=== PATIENT | male | born 1985 | race American Indian/Alaskan Native ===

== ENCOUNTER 2017-04-03 20:05 | Emergency (ER) | payer SELFPAY ==
[2017-04-03 22:07] LABS: Alanine Aminotransferase 23 units/L (7-56); Albumin 4.1 g/dL (3.9-5); Albumin/Globulin Ratio 1.3 %; Alkaline Phosphatase 80 units/L (35-129); Anion Gap 14 mmol/L; BUN/Creatinine Ratio 16; Blood Urea Nitrogen 8 mg/dL (9-20); Calcium 8.4 mg/dL (8.4-10.2); Carbon Dioxide 29 mmol/L (22-30); Chloride 103.6 mmol/L (98-107); Glucose 42 mg/dL (75-100); Lipase 29 units/L (13-60); Potassium 3.7 mmol/L (3.6-5.0); Sodium 143 mmol/L (137-145); Total Protein 7.3 g/dL (6.3-8.2)
[2017-04-03 22:09] LABS: Basophils % (Auto) 0.3 % (0.0-1.8); Eosinophils % (Auto) 0.5 % (0.0-4.3); Hemoglobin 13.5 gm/dl (11.8-15.2); Mean Corpuscular HGB Conc 35 % (32-34); Mean Corpuscular Hemoglobin 31 pg (28-32); Mean Corpuscular Volume 91 fl (84-94); Platelet Count 248 K/mm3 (140-440); Red Cell Distribution Width 15.9 % (13.2-15.2); White Blood Count 7.5 K/mm3 (4.5-11.0)
[2017-04-03 23:20] LABS: Bilirubin,Urine NEG (Negative); Blood,Urine NEG (Negative); Ketones,Urine NEG (Negative); Leukocyte Esterase,Urine NEG (Negative); Mucus,Urine FEW /HPF; Nitrite,Urine NEG (Negative); Protein,Urine <15 mg/dL mg/dL (Negative)
--- NOTE | 2017-04-04 01:18 | Emergency Department Report ---
ED Abdominal Pain HPI - General Chief Complaint: Abdominal Pain Stated Complaint: ABD PAIN Time Seen by Provider: 04/04/17 01:17 Source: patient, EMS Mode of arrival: Ambulatory Limitations: No Limitations - History of Present Illness Initial Comments: Patient is a 32-year-old male presents to the ER with epigastric abdominal pain. Patient was seen yesterday in the ER here for the exact same pain however did not merchandise pickup/receiving associate his medications from the pharmacy. Patient was brought in by EMS this time due to an extreme flareup of his acid reflux and gastritis. Patient denies chest pain.. Patient denies shortness of breath. patient denies fever and chills. MD Complaint: abdominal pain -: Sudden, days(s) Location: epigastric Radiation: epigastric Migration to: epigastric Severity: severe Severity scale (0 -10): 10 Quality: sharp Consistency: intermittent Improves With: rest Worsens With: eating Associated Symptoms: denies other symptoms - Related Data Previous Rx's Medication Instructions Recorded Last Taken Type Lansoprazole [Prevacid] 15 mg PO BID #60 cap 04/02/17 Unknown Rx traMADol [Ultram] 50 mg PO Q6HR PRN #14 tablet 04/02/17 Unknown Rx Allergies Allergy/AdvReac Type Severity Reaction Status Date / Time No Known Allergies Allergy Unverified 04/02/17 01:59 ED Review of Systems ROS: Stated complaint: ABD PAIN Other details as noted in HPI Comment: All other systems reviewed and negative Constitutional: no symptoms reported, see HPI Eyes: as per HPI ENT: as per HPI Respiratory: no symptoms reported, see HPI Cardiovascular: as per HPI Endocrine: no symptoms reported, see HPI Gastrointestinal: as per HPI, abdominal pain Genitourinary: as per HPI Musculoskeletal: as per HPI Skin: as per HPI Neurological: as per HPI Psychiatric: as per HPI Hematological/Lymphatic: as per HPI ED Past Medical Hx - Past Medical History Previous Medical History?: Yes Additional medical history: abd pain - Surgical History Past Surgical History?: No - Social History Smoking Status: Never Smoker Substance Use Type: None - Medications Home Medications: Home Medications Medication Instructions Recorded Confirmed Last Taken Type Lansoprazole [Prevacid] 15 mg PO BID #60 cap 04/02/17 Unknown Rx traMADol [Ultram] 50 mg PO Q6HR PRN #14 tablet 04/02/17 Unknown Rx ED Physical Exam - General Limitations: No Limitations General appearance: alert, in no apparent distress - Head Head exam: Present: atraumatic, normocephalic - Eye Eye exam: Present: normal appearance - ENT ENT exam: Present: mucous membranes moist - Neck Neck exam: Present: normal inspection - Respiratory Respiratory exam: Present: normal lung sounds bilaterally. Absent: respiratory distress - Cardiovascular Cardiovascular Exam: Present: regular rate, normal rhythm. Absent: systolic murmur, diastolic murmur, rubs, gallop - GI/Abdominal GI/Abdominal exam: Present: soft, tenderness (epigastric tenderness), normal bowel sounds - Rectal Rectal exam: Present: deferred - Extremities Exam Extremities exam: Present: normal inspection - Back Exam Back exam: Present: normal inspection - Neurological Exam Neurological exam: Present: alert, oriented X3 - Psychiatric Psychiatric exam: Present: normal affect, normal mood - Skin Skin exam: Present: warm, dry, intact, normal color. Absent: rash ED Course Vital Signs 04/03/17 04/04/17 21:10 00:56 Temperature 97.9 F Pulse Rate 87 Respiratory 16 18 Rate Blood Pressure 132/93 [Right] O2 Sat by Pulse 100 99 Oximetry ED Medical Decision Making - Lab Data Result diagrams: 04/03/17 21:32 04/03/17 21:32 - Medical Decision Making Patient stable for discharge. Patient instructed to merchandise pickup/receiving associate her meds from pharmacy. Patient given gerd diet - Differential Diagnosis gerd, abd pain, gastritis. Critical care attestation.: If time is entered above; I have spent that time in minutes in the direct care of this critically ill patient, excluding procedure time. ED Disposition Clinical Impression: Gastritis, GERD (gastroesophageal reflux disease), GERD with esophagitis, Gastritis and gastroduodenitis, Abdominal pain Disposition: -01 TO HOME OR SELFCARE Is pt being admited?: No Does the pt Need Aspirin: No Condition: Stable Instructions: Gastritis (ED), Diet for Ulcers and Gastritis (ED) Additional Instructions: Patient follow with primary care in 3- 5 days and to see a kennel operator in 3-5 days. Patient to avoid NSAIDs and start GERD diet. Patient take Tylenol when necessary for pain and increase water. Patient to return to ER if condition worsens. Referrals: PRIMARY CARE, [Primary Care Provider] - 3-5 Days Time of Disposition: 02:00
[2017-04-04] MEDS ORDERED: ALUM-MAG HYDROX-SIMETH 200-200-20MG/5ML PO ONE (01:39)
[2017-04-04] MEDS ORDERED: LIDOCAINE VISCOUS 2% PO ONE (01:41)
[2017-04-04 02:02] VITALS: BP 128/84
== END 2017-04-04 02:01 | disposition home or self-care (01) ==
LOC: ED 20:05
DX: K29.70 Gastritis, unspecified, without bleeding (principal); K21.0 Gastro-esophageal reflux disease with esophagitis; K29.90 Gastroduodenitis, unspecified, without bleeding
CPT/HCPCS: 36415; 80053; 81001; 83690; 85025; 99284

== ENCOUNTER 2017-05-30 15:53 | Emergency (ER) | payer OTHER ==
[2017-05-30 17:55] LABS: Basophils # (Auto) 0.1 K/mm3 (0.0-0.1); Basophils % (Auto) 1.2 % (0.0-1.8); Eosinophils # (Auto) 0.1 K/mm3 (0.0-0.4); Eosinophils % (Auto) 1.4 % (0.0-4.3); Hematocrit 40.8 % (35.5-45.6); Hemoglobin 14.1 gm/dl (11.8-15.2); Lymphocytes # (Auto) 1.1 K/mm3 (1.2-5.4); Lymphocytes % (Auto) 25.7 % (13.4-35.0); Mean Corpuscular HGB Conc 35 % (32-34); Mean Corpuscular Hemoglobin 31 pg (28-32); Mean Corpuscular Volume 88 fl (84-94); Monocytes # (Auto) 0.4 K/mm3 (0.0-0.8); Monocytes % (Auto) 9.1 % (0.0-7.3); Platelet Count 260 K/mm3 (140-440); Red Blood Count 4.63 M/mm3 (3.65-5.03); Red Cell Distribution Width 15.4 % (13.2-15.2)
[2017-05-30 18:24] LABS: Alanine Aminotransferase 10 units/L (7-56); Albumin 4.2 g/dL (3.9-5); BUN/Creatinine Ratio 12; Blood Urea Nitrogen 6 mg/dL (9-20); Calcium 8.5 mg/dL (8.4-10.2); Hemolysis Index 4
[2017-05-30 20:25] LABS: Color,Urine Amber (Yellow)
[2017-05-30 20:26] LABS: Bilirubin,Urine NEG (Negative); Blood,Urine NEG (Negative); Mucus,Urine FEW /HPF; Nitrite,Urine NEG (Negative); Protein,Urine <15 mg/dL mg/dL (Negative); Urobilinogen,Urine < 2.0 mg/dL (<2.0); WBC,Urine < 1.0 /HPF (0.0-6.0)
--- NOTE | 2017-05-31 01:22 | Emergency Department Report ---
ED Abdominal Pain HPI - General Chief Complaint: Abdominal Pain Stated Complaint: ABD PAIN Time Seen by Provider: 05/31/17 01:15 Source: patient Mode of arrival: Ambulatory Limitations: No Limitations - History of Present Illness Initial Comments: 32 YO MALE WITH C/O RLQ AND RIGHT UPPER QUADRANT AND RIGHT MID QUADRANT PAIN. HE WAS SEEN 7 WEEKS AGO AT THIS FACILITY ED FOR THIS PAIN AND GIVEN PREVACID, TRAMADOL FOR HIS PAIN. ONE MONTH AGO, HE WAS SEEN AT [place] ,RECEIVED CT ABD/ PELVIS WITH CONTRAST AND THERE WAS ?BOWEL BLOCKAGE PER PT. FOR THE PAST TWO WEEKS, HE HAD 4/10 ABDOMINAL PAIN. FOUR AND A HALF YEARS AGO, HE HAD GASTRIC BYPASS. PT SITTING UP ON THE STRETCHER TEXTING ON HIS PHONE. NO DISTRESS NOTED MD Complaint: abdominal pain -: Gradual (MORE THAN 7 WEEKS) Radiation: RUQ, LLQ Migration to: epigastric Severity scale (0 -10): 3 Quality: aching Consistency: constant Improves With: medication - Related Data Previous Rx's Medication Instructions Recorded Last Taken Type Lansoprazole [Prevacid] 15 mg PO BID #60 cap 04/02/17 Unknown Rx traMADol [Ultram] 50 mg PO Q6HR PRN #14 tablet 04/02/17 Unknown Rx oxyCODONE /ACETAMINOPHEN [Percocet 2 tab PO Q6HR PRN #14 tablet 05/31/17 Unknown Rx 5/325] Allergies Allergy/AdvReac Type Severity Reaction Status Date / Time No Known Allergies Allergy Unverified 04/02/17 01:59 ED Review of Systems ROS: Stated complaint: ABD PAIN Other details as noted in HPI Constitutional: denies: chills, fever Eyes: denies: eye pain, eye discharge, vision change ENT: denies: ear pain, throat pain Respiratory: denies: cough, shortness of breath, wheezing Cardiovascular: chest pain. denies: palpitations Endocrine: no symptoms reported Gastrointestinal: denies: nausea, vomiting, diarrhea Genitourinary: denies: urgency, dysuria Musculoskeletal: denies: back pain, joint swelling, arthralgia Skin: denies: rash, lesions Neurological: denies: headache, weakness, paresthesias Psychiatric: denies: anxiety, depression Hematological/Lymphatic: denies: easy bleeding, easy bruising ED Past Medical Hx - Past Medical History Previous Medical History?: Yes Additional medical history: abd pain,MORBID OBESITY - Surgical History Past Surgical History?: Yes Additional Surgical History: GASTRIC BYPASS 4 .5 YRS AGO - Social History Smoking Status: Never Smoker Substance Use Type: None, Alcohol - Medications Home Medications: Home Medications Medication Instructions Recorded Confirmed Last Taken Type Lansoprazole [Prevacid] 15 mg PO BID #60 cap 04/02/17 Unknown Rx traMADol [Ultram] 50 mg PO Q6HR PRN #14 tablet 04/02/17 Unknown Rx oxyCODONE /ACETAMINOPHEN [Percocet 2 tab PO Q6HR PRN #14 tablet 05/31/17 Unknown Rx 5/325] ED Physical Exam - General Limitations: No Limitations General appearance: alert, in no apparent distress - Head Head exam: Present: atraumatic, normocephalic - Eye Eye exam: Present: normal appearance, EOMI - ENT ENT exam: Present: mucous membranes moist - Neck Neck exam: Present: normal inspection, full ROM - Respiratory Respiratory exam: Present: normal lung sounds bilaterally. Absent: respiratory distress - Cardiovascular Cardiovascular Exam: Present: regular rate, normal rhythm. Absent: systolic murmur, diastolic murmur, rubs, gallop - GI/Abdominal GI/Abdominal exam: Present: soft, tenderness (RLQ ANDV RIGHT MID AND RUQ), normal bowel sounds - Rectal Rectal exam: Present: deferred - Extremities Exam Extremities exam: Present: normal inspection, full ROM - Back Exam Back exam: Present: normal inspection, full ROM - Neurological Exam Neurological exam: Present: alert, oriented X3, CN II-XII intact - Psychiatric Psychiatric exam: Present: normal affect, normal mood - Skin Skin exam: Present: warm, dry, intact, normal color. Absent: rash ED Course Vital Signs 05/30/17 05/30/17 17:30 23:56 Temperature 98.1 F 98.2 F Pulse Rate 65 80 Respiratory 16 16 Rate Blood Pressure 116/65 Blood Pressure 130/85 [Left] O2 Sat by Pulse 100 100 Oximetry ED Medical Decision Making - Lab Data Result diagrams: 05/30/17 17:39 05/30/17 17:39 - Radiology Data Radiology results: report reviewed (CXR; NO ACTIVE DISEASE ABD XRAY: UNREMARKALE BOWEL GAS PATTERN), image reviewed Critical care attestation.: If time is entered above; I have spent that time in minutes in the direct care of this critically ill patient, excluding procedure time. ED Disposition Clinical Impression: Chest pain Qualifiers: Chest pain type: unspecified Qualified Code(s): R07.9 - Chest pain, unspecified Disposition: TO HOME OR SELFCARE Is pt being admited?: No Does the pt Need Aspirin: No Condition: Stable Instructions: Acute Abdominal Pain (ED), Noncardiac Chest Pain (ED) Additional Instructions: FOLLOW UP WITH YOUR DOCTOR IN 2 DAYS. RETURN TO THE ER FOR WORSENING PAIN, OR CHANGING PAIN. OR FOR ANY CONCERNS. Prescriptions: oxyCODONE /ACETAMINOPHEN [Percocet 5/325] 2 tab PO Q6HR PRN #14 tablet PRN Reason: Pain Referrals: MARTIN BALLESTEROS MD [Primary Care Provider] - 3-5 Days Time of Disposition: 01:49
--- NOTE | 2017-05-31 01:24 | XRay Report ---
FINAL REPORT EXAM: XR ABDOMEN 2V HISTORY: abdominal pain TECHNIQUE: Two views of the abdomen were obtained. FINDINGS: The overall bowel gas pattern is within normal limits. There are surgical clips in the left upper quadrant of the abdomen. The lung bases are clear. There is no evidence of mass effect or suspicious calcifications. The skeletal structures are well-maintained. IMPRESSION: Unremarkable bowel gas pattern. No acute process identified.
--- NOTE | 2017-05-31 01:25 | XRay Report ---
FINAL REPORT EXAM: XR CHEST ROUTINE 2V HISTORY: LOWER RT CHEST PAIN TECHNIQUE: PA and lateral views of the chest were submitted. There are no previous studies available for comparison. FINDINGS: Heart size and mediastinum appear normal. The lungs are clear. Pleural fluid is not seen. The bones and soft tissues do not show any acute changes. IMPRESSION: No active chest disease.
[2017-05-31 01:44] LABS: Creatine Kinase MB 2.1 ng/mL (0.0-4.0)
[2017-05-31] MEDS ORDERED: NACL 0.9% 1000 ML 1,000 ML IV ONE (01:49)
[2017-05-31] MEDS ORDERED: TORADOL IV ONE (01:49)
--- NOTE | 2017-05-31 05:37 | Cat Scan Report ---
FINAL REPORT EXAM: CT ABDOMEN PELVIS W CON HISTORY: ABD PAIN, G-BYPASS YRS AGO TECHNIQUE: Routine axial imaging was obtained of the abdomen and pelvis following the intravenous injection of 100 cc of Omnipaque 350. Delayed axial imaging was obtained for evaluation of the renal collecting structures and ureters. Coronal and parasagittal reconstructions were also reviewed. FINDINGS: The lung bases are clear. Pleural fluid is not identified. The liver, pancreas, spleen, and adrenal glands appear normal. The gallbladder is normal size reveals least 1 dependent stone. There are no secondary signs of acute cholecystitis. The kidneys enhance normally. The vascular structures reveal either a flow artifact versus partial thrombosis of the portal vein. This is seen best on the coronal reconstructions. The aorta opacifies normally. There are postsurgical changes in the upper abdomen and mid abdomen related to gastric bypass surgery changes. The bowel loops are normal in caliber. Adenopathy is not identified. The appendix is not enlarged. Free fluid is not seen. In the pelvis the prostate gland and bladder appear normal. The skeletal structures are well-maintained. The soft tissues reveal nonspecific subcutaneous edema throughout the abdomen and pelvis suggesting anasarca. IMPRESSION: Previous gastric bypass surgery changes. A least 1 gallstone. No secondary signs of acute cholecystitis. Flow artifact versus partial thrombosis of the portal vein. Right upper quadrant Doppler imaging is recommended with special attention to the portal vein for further evaluation. Nonspecific subcutaneous edema throughout the abdomen pelvis. Underlying anasarca cannot be excluded.
--- NOTE | 2017-05-31 09:05 | Ultrasound Report ---
Sonogram right upper quadrant: History: Abdominal pain. Findings: Aortic diameter 2.2 cm. Echogenic liver probably mildly fatty liver. No intrahepatic or extrahepatic duct dilatation. Common bile duct diameter 3.5 mm. Gallbladder wall thickness 3.5 mm. Multiple calculi identified within the gallbladder. No pericholecystic fluid. Right kidney 11.6 x 5.3 x 7 cm. Cortical thickness is 1.4 cm. Impression: Multiple calculi in thickwalled gallbladder.
--- NOTE | 2017-05-31 11:15 | Event Note ---
Date: 05/31/17 Patient is received as a signout. Vascular lab interpretation is as follows: [facility] FERNANDO JORGE [facility] : 1985 [id number] 05/31/17 08:34 - Radiology Dept. Note by KAIA CUELLO [facility] Num: [id number] : 1985 Patient Age: 32 VASCULAR LAB PRELIMINARY REPORT PORTAL VEIN DOPPLER COMPLETED NO EVIDENCE OF THROMBUS NOTED PORTAL VEIN NOTED TO HAVE HEPATOPEDAL FLOW Initialized on 05/31/17 08:34 - END OF NOTE Right upper quadrant ultrasound demonstrates gallstones with thickened gallbladder wall, but no pericholecystic fluid. Laboratory studies reviewed and are appreciated. When I interviewed the patient he indicates he's had this pain for over 6 months. No fevers, chills, nausea, vomiting, patient able to tolerate liquid feedings. Case discussed with general surgeon on-call, Dr. Kirby. Patient's laboratory studies, ultrasound were relates to the general surgeon, and she has also personally reviewed the patient's imaging and chart. Given duration of symptoms, laboratory studies, ultrasound findings, neither of us believe that the patient requires emergent cholecystectomy at this time. The general surgeon recommends that the patient follow up with outpatient gastroenterology for possible H. pylori, reinitiation of proton pump inhibitor, it indicates she would be happy to see the patient to follow-up in the office within the next 7-10 days. Patient will be discharged at this time, he is instructed to follow up as directed.
[2017-05-31 12:00] VITALS: BP 109/65
--- NOTE | 2017-06-04 13:04 | Vascular Lab Report ---
PORTAL VEIN DUPLEX Reason for exam: Portal vein thrombosis Comment on the scan: The inferior vena cava is patent. The hepatic veins appear to be patent. The portal vein is patent without evidence of thrombus. Hepatopedal flow is noted. These findings are all normal. Incidentally noted is extensive cholelithiasis. Impression: No evidence of portal vein thrombosis. Flow in the portal vein is appropriately directed toward the liver. Extensive cholelithiasis. Consider further evaluation.
== END 2017-05-31 12:12 | disposition home or self-care (01) ==
LOC: ED 15:53
DX: R07.9 Chest pain, unspecified (principal)
CPT/HCPCS: 36415; 71046; 74019; 74177; 76705; 80053; 81001; 82550; 82553; 83880; 84484; 85025; 93979; 99284; G0480; J1885; J7030; Q9967; 80320

== ENCOUNTER 2018-12-06 23:40 | Emergency (ER) | payer OTHER ==
[2018-12-07 00:20] LABS: Basophils % (Auto) 0.5 % (0.0-1.8); Eosinophils % (Auto) 0.1 % (0.0-4.3); Lymphocytes # (Auto) 1.7 K/mm3 (1.2-5.4); Lymphocytes % (Auto) 27.3 % (13.4-35.0); Mean Corpuscular HGB Conc 37 % (32-34); Mean Corpuscular Volume 92 fl (84-94); Monocytes # (Auto) 0.7 K/mm3 (0.0-0.8); Monocytes % (Auto) 11.3 % (0.0-7.3); Platelet Count 219 K/mm3 (140-440); Red Blood Count 3.82 M/mm3 (3.65-5.03); Red Cell Distribution Width 13.5 % (13.2-15.2)
[2018-12-07 00:31] LABS: Hematocrit 35.1 % (35.5-45.6); Hemoglobin 12.9 gm/dl (11.8-15.2)
[2018-12-07 00:34] LABS: Alanine Aminotransferase 63 units/L (7-56); Albumin 4.1 g/dL (3.9-5); BUN/Creatinine Ratio 8; Blood Urea Nitrogen 6 mg/dL (9-20); Calcium 8.5 mg/dL (8.4-10.2); Hemolysis Index 7
[2018-12-07] MEDS ORDERED: PEPCID IV ONE (02:39)
[2018-12-07] MEDS ORDERED: ZOFRAN IV ONE (02:39)
[2018-12-07] MEDS ORDERED: NACL 0.9% 1000 ML 1,000 ML IV ONE (02:39)
[2018-12-07] MEDS ORDERED: TORADOL IV ONE (02:39)
--- NOTE | 2018-12-07 02:44 | Emergency Department Report ---
HPI - General Chief Complaint: Nausea/Vomiting/Diarrhea Time Seen by Provider: 12/07/18 02:32 - HPI HPI: Room 6 The patient is a 33-year-old male presenting with a chief complaint of abdominal pain and diarrhea. The patient states 5 days ago he developed frequent diarrhea. Patient denies recent antibiotic use. Patient states for the past 2- 3 days he's had nausea without vomiting and right lower quadrant abdominal pain. The patient states this pain waxes and wanes and feels like a pressure that is throbbing. Patient states his abdominal pain is constant. Patient denies history of fever. Patient denies history of sick contacts. Patient gives his pain a score of 4/10 Location: [See above] Duration: [See above] Quality: [See above] Severity: [See above] Modifying factors: [see above] Context: [see above] Mode of transportation: [not driving] ED Past Medical Hx - Past Medical History Previous Medical History?: Yes Additional medical history: abd pain,MORBID OBESITY - Surgical History Past Surgical History?: Yes Hx Cholecystectomy: Yes Additional Surgical History: GASTRIC BYPASS 4 .5 YRS AGO - Family History Family history: no significant - Social History Smoking Status: Never Smoker Substance Use Type: None (denies illicit drug use), Alcohol (occasional) - Medications Home Medications: Home Medications Medication Instructions Recorded Confirmed Last Taken Type traMADol [Ultram] 50 mg PO Q6HR PRN #14 tablet 04/02/17 Unknown Rx Lansoprazole [Prevacid] 15 mg PO BID #60 cap 05/31/17 Unknown Rx oxyCODONE /ACETAMINOPHEN [Percocet 2 tab PO Q6HR PRN #14 tablet 05/31/17 Unknown Rx 5/325] Diphenoxylate/Atropine [Lomotil] 2 tab PO QID PRN #20 tablet 12/07/18 Unknown Rx HYDROcodone/APAP 5-325 [[place] 1 - 2 each PO Q6HR PRN #10 tablet 12/07/18 U nknown Rx 5/325] Ondansetron [Zofran ODT TAB] 8 mg PO Q8HR #20 tab.rapdis 12/07/18 Unknown Rx ED Review of Systems ROS: Stated complaint: ABD PAIN Other details as noted in HPI Constitutional: denies: fever Eyes: denies: eye pain ENT: denies: throat pain Respiratory: no symptoms reported Cardiovascular: denies: chest pain Endocrine: no symptoms reported Gastrointestinal: nausea, diarrhea. denies: vomiting Genitourinary: denies: dysuria Musculoskeletal: denies: back pain Neurological: denies: headache Physical Exam - Physical Exam Vital Signs: Vital Signs 12/06/18 12/06/18 12/07/18 23:43 23:51 01:55 Temperature 98.1 F 98.1 F 97.9 F Pulse Rate 94 H 94 H 62 Respiratory 18 18 18 Rate Blood Pressure 133/84 133/84 Blood Pressure 133/82 [Left] O2 Sat by Pulse 97 97 98 Oximetry Physical Exam: GENERAL: The patient is well-developed well-nourished male lying on stretcher not appearing to be in acute distress. [] HEENT: Normocephalic. Atraumatic. Extraocular motions are intact. Patient has moist mucous membranes. NECK: Supple. Trachea midline CHEST/LUNGS: Clear to auscultation. There is no respiratory distress noted. HEART/CARDIOVASCULAR: Regular. There is no tachycardia. There is no gallop rub or murmur. ABDOMEN: Abdomen is soft, with tenderness to palpation in the right upper quadrant, midepigastric, left upper quadrant and left lower quadrant. Patient has normal bowel sounds. There is no abdominal distention. SKIN: There is no rash. There is no edema. There is no diaphoresis. NEURO: The patient is awake, alert, and oriented. The patient is cooperative. The patient has no focal neurologic deficits. The patient has normal speech MUSCULOSKELETAL: There is no evidence of acute injury. ED Course Vital Signs 12/06/18 12/06/18 12/07/18 23:43 23:51 01:55 Temperature 98.1 F 98.1 F 97.9 F Pulse Rate 94 H 94 H 62 Respiratory 18 18 18 Rate Blood Pressure 133/84 133/84 Blood Pressure 133/82 [Left] O2 Sat by Pulse 97 97 98 Oximetry ED Medical Decision Making - Lab Data Result diagrams: 12/06/18 23:54 12/06/18 23:55 Laboratory Tests 12/06/18 12/06/18 12/06/18 23:54 23:55 23:55 WBC 6.1 RBC 3.82 Hgb 12.9 Hct 35.1 L MCV 92 MCH 34 H MCHC 37 H RDW 13.5 Plt Count 219 Lymph % (Auto) 27.3 [place] % (Auto) 11.3 H Eos % (Auto) 0.1 Baso % (Auto) 0.5 Lymph # 1.7 [place] # 0.7 Eos # 0.0 Baso # 0.0 Seg Neutrophils % 60.8 Seg Neutrophils # 3.7 Sodium 141 Potassium 3.6 Chloride 101.8 Carbon Dioxide 28 Anion Gap 15 BUN 6 L Creatinine 0.8 Estimated GFR > 60 BUN/Creatinine Ratio 8 Glucose 87 Calcium 8.5 Total Bilirubin 2.00 H AST 110 H ALT 63 H Alkaline Phosphatase 107 Total Protein 7.8 Albumin 4.1 Albumin/Globulin Ratio 1.1 Lipase 19 - Radiology Data Radiology results: report reviewed (CT abdomen and pelvis), image reviewed (CT abdomen and pelvis) [facility] [address] [place] [address] Cat Scan Report Signed Patient: FERNANDO JORGE MR#: [id number] : 1985 Acct:[id number] Age/Sex: 33 / M ADM Date: 12/06/18 Loc: ED Attending Dr: Ordering Physician: REINALDO RIBEIRO MD Date of Service: 12/07/18 Procedure(s): CT abdomen pelvis w con Accession Number(s): [id number] cc: REINALDO RIBEIRO MD CT abdomen pelvis w con INDICATION / CLINICAL INFORMATION: Right sided abd pain. History of cholecystectomy 6 months ago. Gastric bypass 7 years ago. TECHNIQUE: All CT scans at this location are performed using CT dose reduction for ALARA by means of automated exposure control. COMPARISON: 05/31/2017 FINDINGS: Limited lower thoracic images are normal. ABDOMEN: Surgical changes in the left upper quadrant consistent with gastric bypass. Cholecystectomy. The liver is mildly enlarged with diffuse fatty infiltration. The spleen and pancreas are normal. No renal or retroperitoneal abnormalities. No small bowel dilatation. Pelvis: A normal retrocecal appendix is identified. No dependent fluid collections are identified in the pelvis. No acute inflammatory findings. No ske letal abnormality. IMPRESSION: 1. No acute findings in the abdomen or pelvis. 2. Enlarged fatty liver. Signer Name: Davie Huff MD Signed: 12/07/2018 3:22 AM Workstation Name: [id number] Transcribed By: WILLEM Dictated By: Davie Huff MD Electronically Authenticated By: Davie Huff MD Signed Date/Time: 12/07/18321 DD/ 6 TD/TT: - Differential Diagnosis alcoholic hepatitis, hepatitis, partial small bowel obstruction, appendicit Critical care attestation.: If time is entered above; I have spent that time in minutes in the direct care of this critically ill patient, excluding procedure time. ED Disposition Clinical Impression: Acute abdominal pain, Elevated LFTs Disposition: TO HOME OR SELFCARE Is pt being admited?: No Does the pt Need Aspirin: No Condition: Stable Instructions: Viral Hepatitis A (ED), Viral Hepatitis C (ED), Viral Hepatitis B (ED) Additional Instructions: Return to the emergency department immediately should you develop worsening symptoms, fever, inability to tolerate food or liquid or any other concerns. Prescriptions: Diphenoxylate/Atropine [Lomotil] 2 tab PO QID PRN #20 tablet PRN Reason: Diarrhea HYDROcodone/APAP 5-325 [[place] 5/325] 1 - 2 each PO Q6HR PRN #10 tablet PRN Reason: Pain Ondansetron [Zofran ODT TAB] 8 mg PO Q8HR #20 tab.rapdis Referrals: [facility] MD BENITA [Primary Care Provider] - 3-5 Days LISBETH CONNOLLY MD [Staff Physician] - 3-5 Days (Dr. Connolly is a solar energy installation manager. Please follow-up with him for further evaluation of your elevated liver function tests and abdominal pain) Time of Disposition: 03:31
--- NOTE | 2018-12-07 03:26 | Cat Scan Report ---
CT abdomen pelvis w con INDICATION / CLINICAL INFORMATION: Right sided abd pain. History of cholecystectomy 6 months ago. Gastric bypass 7 years ago. TECHNIQUE: All CT scans at this location are performed using CT dose reduction for ALARA by means of automated e xposure control. COMPARISON: 05/31/2017 FINDINGS: Limited lower thoracic images are normal. ABDOMEN: Surgical changes in the left upper quadrant consistent with gastric bypass. Cholecystectomy. The liver is mildly enlarged with diffuse fatty infiltration. The spleen and pancreas are normal. No renal or retroperitoneal abnormalities. No small bowel dilatation. Pelvis: A normal retrocecal appendix is identified. No dependent fluid collections are identified in the pelvis. No acute inflammatory findings. No skeletal abnormality. IMPRESSION: 1. No acute findings in the abdomen or pelvis. 2. Enlarged fatty liver. Signer Name: Davie Huff MD Signed: 12/07/2018 3:22 AM Workstation Name: [id number]
[2018-12-07 04:19] VITALS: BP 118/79
== END 2018-12-07 04:36 | disposition home or self-care (01) ==
LOC: ED 23:40
DX: R10.9 Unspecified abdominal pain (principal); R19.7 Diarrhea, unspecified; R11.0 Nausea; R94.5 Abnormal results of liver function studies; E66.01 Morbid (severe) obesity due to excess calories
CPT/HCPCS: 36415; 74177; 80053; 83690; 85025; 96361; 96374; 96375; 99284; J1885; J2405; J7030; Q9967